=== PATIENT | female | born 1960 | race Two or more races ===

== ENCOUNTER 2016-09-15 11:54 | Emergency (ER) | payer SELFPAY ==
[~2016-09-15] VITALS: Ht 167.6 cm; Wt 81.6 kg
[2016-09-15 11:57] VITALS: BP 147/81
== END 2016-09-15 12:31 | disposition home or self-care (01) ==
LOC: ER 11:56
DX: T22.111A Burn of first degree of right forearm, initial encounter (principal); T24.112A Burn of first degree of left thigh, initial encounter; T24.111A Burn of first degree of right thigh, initial encounter; T21.12XA Burn of first degree of abdominal wall, initial encounter; X10.0XXA Contact with hot drinks, initial encounter; Y93.89 Activity, other specified; Y92.89 Other specified places as the place of occurrence of the external cause; Y99.8 Other external cause status
CPT/HCPCS: 99283; A4606; Z7610